=== PATIENT | male | born 1985 | race Caucasian/White ===

== ENCOUNTER 2021-09-06 12:54 | Emergency (ER) | payer MEDICAID, SELFPAY ==
[2021-09-06 12:58] VITALS: BP 162/96; PULSE 84; RESP 18; TEMP 36.6; O2SAT 99
--- NOTE | 2021-09-06 13:00 | DI.RAD_ITS ---
Exam(s) XR TIB/FIB RT EXAM: XR TIB/FIB RT CLINICAL HISTORY: ski injury, fibular head pain. TECHNIQUE: 2D digital imaging was performed. COMPARISON: No exams were available for comparison FINDINGS: Two views No evidence of fracture nor dislocation. No osseous lesions. No radiopaque foreign body. IMPRESSION: No fracture evident. DATA REPOSITORY: RADIATION DOSE DELIVERED:
--- NOTE | 2021-09-06 13:00 | DI.RAD_ITS ---
Exam(s) XR KNEE RT 3V AP,LAT,ANGEL EXAM: XR KNEE RT 3V AP,LAT,AGNEL CLINICAL HISTORY: ski injury, right lateral knee pain. TECHNIQUE: 2D digital imaging was performed. COMPARISON: No exams were available for comparison FINDINGS: 3 views No evidence of fracture. There is a small amount of increased joint fluid. This may signify an inte rnal derangement. No joint space narrowing. No osteochondral defects. No osseous lesions. IMPRESSION: No significant osseous finding. However, there is a joint effusion which may signify an internal koko angement DATA REPOSITORY: RADIATION DOSE DELIVERED:
--- OUTSIDE RECORDS SUMMARY | 2021-09-06 13:08 | XMS_ITS ---
:1985 Author Care Team Providers Name Role Phone ANYA PIZARRO MD Primary Care Provider [phone] Allergies Code Code System Name Reaction Severity Status Onset NKDA ? Medications Name Status Start Date Stop Date ? ? cephalexin 500 mg tablet Active ? Not sirena ilable Take 1 tablet 4 times a day by oral route for 5 days. cyclobenzaprine 5 mg tablet Completed 07/07/201306/25 1 Tablet: Three times daily as needed escitalopram 20 mg tablet Completed 07/09/20132013 1 Tablet: daily hydrocodone 5 mg-acetaminophen 500 mg tablet Completed 07/31/2013 1 Tablet: every 12 hours prn cluster headache Imitrex 25 mg tablet Completed 07/07/2013 07/07/2013 1 Tablet: at onset of headache mirtazapine 15 mg tablet Active ? Not sirena ilable TAKE 1 TABLET BY MOUTH AT BEDTIME paroxetine 20 mg tablet Completed 07/07/2013 07/07/19 14 1 /2 Tablet: daily penicillin V potassium 250 mg tablet Completed 06/30/2014 07/10/2014 1 (one) Tablet Tablet: Every 6 hours penicillin V potassium 500 mg tablet Completed 10/27/2013 11/06/2013 1 (one) Tablet: every 6 hours quetiapine 100 mg tablet Active ? Not sirena ilable TAKE 1 TABLET BY MOUTH AT BEDTIME sumatriptan 20 mg/actuation nasal spray Completed 02/25/20 14 02/24/2014 1 Solution: 1 spray in nostril prn cluster headache sumatriptan 5 mg/actuation nasal spray Completed 6 03/21/2016 2 (two) Lemitar: every 6 hours and every 6 hours as needed topiramate 25 mg tablet Completed 07/07/2013 08/06/19 14 1 Tablet: at bedtime Tylenol-Codeine #3 300 mg-30 mg tablet Completed 4 02/07/2016 1 (one) Tablet Tablet: Every 6 hours as needed Ultram 50 mg tablet Completed 03/17/2016 03/21/2016 1 (one) Tablet: every 6 hours as needed Vyvanse 30 mg capsule Active ? Not availa ble TK 1 C PO QAM Vyvanse 50 mg capsule Active ? Not availa ble TAKE 1 CAPSULE BY MOUTH EVERY MORNING Problems Name Status Onset Date Source ? Screening for Cardiovascular System Active 04/28/2019 ? Disease Episodic Mood Disorder Active ? ? Nicotine Dependence Active ? History Cannabis Abuse Unknown ? History Depressive Disorder Active ? ? Cluster Headache Unknown ? History Episodic Cluster Headache Active ? Histor y Migraine Active ? History Periapical Abscess without Sinus Tract Unknown ? History Mental Disorder Unknown ? History Inflammatory Disorder of Digestive Unknown ? History Tract Procedure by Method Unknown ? History Procedures None recorded. Results Lab Results Date Name Specimen Result Interpretation Description Value Range Status Address ? 09/29/2020 SARS CoV 2 SWAB ? Covid-19 negative negative Fi nal [place] RNA RT-PCR [place] (COVID-19), [facility] QL, physical geographer-PCR, Result (Int ernal): Respiratory [address] Specimen Geovanny Cruz ort ? ? SWAB ? Performing panther ? Final [facility] L ab (Internal) : [address] t 09/20/2020 CBC W/ Auto BLD High Wbc 13.4 5.0-10.0 Final [place] Diff 10*3/uL 10*3/uL [facility] L ab (Internal) : [address] t ? ? BLD ? Rbc 5.29 4.60-6.00 Final [place] 10*6/uL 10*6/uL [facility] L ab (Internal) : [address] t ? ? BLD ? Hgb 15.8 g/dL 14.0-18.0 Final Nort h g/dL [facility] L ab (Internal) : [address] t ? ? BLD ? Hct 43.9 % 41.0-51.0 Final [place] % [facility] L ab (Internal) : [address] t ? ? BLD ? Mcv 83.0 fL 80.0-96.0 Final [facility] L ab (Internal) : [address] t ? ? BLD ? Mch 29.9 pg 26.0-32.0 Final [facility] L ab (Internal) : [address] t ? ? BLD High Mchc 36.0 g/dL 31.0-35.0 Final Nort h g/dL [facility] L ab (Internal) : [address] t ? ? BLD ? Rdw 12.5 % 11.5-14.5 Final [facility] L ab (Internal) : [address] t ? ? BLD ? Plt 227 130-450 Final [place] 10*3/uL 10*3/uL [facility] L ab (Internal) : [address] t ? ? BLD ? Anc 10.03 ? Final [place] 10*3/uL [facility] L ab (Internal) : [address] t ? ? BLD High Nlr 4.16 0.00-3.20 Final [facility] L ab (Internal) : [address] t ? ? BLD ? Neutro 75.0 % 40.0-75.0 Final [facility] L ab (Internal) : [address] t ? ? BLD Low Lymph 18.0 % 20.0-50.0 Final [facility] L ab (Internal) : [address] t ? ? BLD ? [place] 5.4 % 2.0-10.0 Final [facility] L ab (Internal) : [address] t ? ? BLD Low Eos 0.7 % 1.0-6.0 % Final [facility] L ab (Internal) : [address] t ? ? BLD ? Baso 0.6 % 0.0-1.0 % Final [facility] L ab (Internal) : [address] t ? ? BLD ? Ig 0.3 % 0.0-0.9 % Final [facility] L ab (Internal) : [address] t 09/20/2020 CMP, Serum or S ? g/r 97 mg/dL 74-106 [facility] [place] Plasma mg/dL [facility] L ab (Internal) : [address] t ? ? S ? Bun 9 mg/dL 9-20 Final [facility] mg/dL [facility] ([facility] : [address] t ? ? S Low Crea 0.60 0.66-1.25 Final [facility] mg/dL mg/dL [facility] ([facility]) : [address] t ? ? S ? Ca 9.1 mg/dL 8.4-10.2 Final [facility] mg/dL [facility] ([facility]) : [address] t ? ? S ? Na 141 137-145 Final [facility] mmol/L mmol/L [facility] (Internal) : [address] t ? ? S ? K 3.9 3.5-5.1 Final [place] mmol/L mmol/L [facility] (Internal) : [address] t ? ? S ? Cl 100 98-107 Final [facility] mmol/L mmol/L [facility] (Internal) : [address] t ? ? S ? Tco2 25.0 22.0-30.0 Final [facility] mmol/L mmol/L [facility] (Internal) : [address] t ? ? S ? Tp 7.6 g/dL 6.3-8.2 Final [facility] g/dL [facility] (Internal) : [address] t ? ? S ? Alb 4.7 g/dL 3.5-5.0 Final [facility] g/dL [facility] (Internal) : [address] t ? ? S ? Tbil 0.6 mg/dL 0.2-1.3 Final [facility] mg/dL [facility] (Internal) : [address] t ? ? S ? Alp 54 U/L 50-136 Final [facility] U/L [facility] ([facility]) : [address] t ? ? S Low Alt (Sgpt) 20 U/L 21-72 U/L Final No rth [facility] (Internal) : [address] t ? ? S ? Ast (Sgot) 26 U/L 17-59 U/L Final [facility]th [facility] (Internal) : [address] t 09/20/2020 Lipase, Serum S ? Lip 46 U/L 23-300 Final [place] or Plasma U/L [facility] L ab (Internal) : [address] 09/20/2020 Troponin I, S ? Trop <0.06 0.00-0.06 Final [place] Serum or NG/mL NG/mL [facility] L ab (Internal) : [address] Past Encounters None recorded. Social History Tobacco Smoking Status Heavy Tobacco Smoker (1 pack per day) Vaccine List None recorded. Plan of Care Reminders Provider Appointments None ? ? recorded. Lab None ? ? recorded. Referral None ? ? recorded. Procedures None ? ? recorded. Surgeries None ? ? recorded. Imaging None ? ? recorded. Vitals 04/28/2019 09:40AM New Patient 40 Height Weight BMI Blood Pressure 190.5 cm 93.3 kg 25.7 kg/m2 130/82 mm[Hg] 03/21/2016 Blood Pressure 128/90 mm[Hg] 02/07/2016 Weight Blood Pressure 71.44 kg 134/80 mm[Hg] 06/30/2014 Weight Blood Pressure 71.44 kg 130/80 mm[Hg] 02/24/2014 Weight Blood Pressure 69.58 kg 120/64 mm[Hg] 07/21/2013 Weight Blood Pressure 69.99 kg 120/74 mm[Hg] 07/09/2013 Weight Blood Pressure 69.85 kg 120/78 mm[Hg] 07/07/2013 Weight Blood Pressure 69.85 kg 130/70 mm[Hg] 01/12/2013 Weight Blood Pressure 70.31 kg 122/80 mm[Hg] 12/11/2012 Height Weight Blood Pressure 191.77 cm 70.44 kg 122/84 mm[Hg]
--- NOTE | 2021-09-06 13:16 | W.ED.GENAD ---
Discharge Plan Disposition Patient Disposition: HOME Condition: Stable Discharge Details Chief Complaint: Orthopedic Clinical Impression: Contusion of knee Primary Care Provider: Funmi,Local ED Provider: Hunter Tellez Home Meds and New Rx's Prescriptions: No Action paroxetine HCl [Paxil] 30 MG tablet 30 mg PO DAILY 0RF cyclobenzaprine 10 MG tablet 10 mg PO TID PRN PRNQty: 10 0RF Discharge Instructions Instructions: Contusion in Adults (ED) Additional Instructions: Rest ice and elevate your right leg. Use crutches as needed. If no improvement is seen in the coming days or if you have worsening symptoms please return to the emergency department for further evaluation and/or be seen by orthopedic team within the next week. Referrals: Kamran Ya MD [ [facility] STAFF PHYSICIAN] - 1 week (Please be seen by orthopedic radiologic technologist if symptoms worsen or do not improve) Medical Decision Making 36-year-old male presents with right knee pain and left facial pain in setting of hitting a tree yesterday skiing no loss of conscious was helmeted wearing goggles, range of motion intact in lower extremity, superficial abrasion and point tenderness over fibular head, no joint laxity, a small amount of weight. Extraocular motion intact pupils equal TMs unremarkable, no evidence of ocular entrapment, no evidence of malocclusion. Likely simple contusion of face and knee must also consider avulsion fracture versus fracture of fibula versus less likely tibial fracture or knee dislocation or femoral involvement. Neurologically intact neurovascular exam of limb intact. Patient's pain is controlled at this time. X-ray of affected limb. Low suspicion for intracranial hemorrhage or facial fracture given history and physical. Home care instructions and return precautions to be given Resting comfortably no acute distress. X-ray negative for acute fracture dislocation. Able to bear small amount of weight. Likely bone contusion versus soft tissue injury. Dueto location of pain over fibular head/lateral tibia and inability to bear full weight patient was offered CT to evaluate for tibial plateau fracture or given the option to return for follow-up here as needed and/or be seen with orthopedic team as needed. Patient would rather assess progress at home and return if needed and to follow-up with orthopedic team as needed. Will be given crutches for comfort. Home care instructions and return precautions given [facility] General Date/Time Provider Initiated Documentation: 09/06/21 13:02. HPI Narrative: 36-year-old male presents 1 day post skiing injury, hit a tree with his right knee and his face, no loss of consciousness, was helmeted and wearing goggles, does have some swelling to left side of face, pain with range of motion and full weight bearing on the right lower extremity, abrasion to right lateral knee; denies headache nausea vomiting or other trauma. Is able to bear weight however is favoring his right leg. Related Data Home Medications Medication Instructions Recorded Confirmed cyclobenzaprine 10 mg tablet 10 mg PO TID PRN PRN #10 tab 07/04/13 paroxetine HCl 30 mg tablet (Paxil) 30 mg PO DAILY 07/04/13 07/04/13 Previous Rx's Medication Instructions Recorded cyclobenzaprine 10 mg tablet 10 mg PO TID PRN PRN #10 tab 07/04/13 Allergies Allergy/AdvReac Type Severity Reaction Status Date / Time No Known Allergies Allergy Unverified 07/04/13 15:24 General Stated Complaint: Orthopedic SHAZIA: 4 Review of Systems Narrative: Review of Systems Constitutional: negative Eyes: negative ENT: Facial injury Cardiovascular: negative Respiratory: negative Gastrointestinal: negative : negative Musculoskeletal: Right lower extremity pain Skin: negative Neurologic: negative Psych: negative PFSH All Active Problems (Updated 09/06/21 @ 15:33 by Hunter Tellez MD) Contusion of knee (Acute) Social History Smoking/Tobacco Use Status: Current every day Smoking risk assessment performed?: Yes Alcohol Intake: current Drug use: Daily Substance use type: marijuana Do you feel safe at home: Yes Do you feel safe in your relationship?: Yes Exam Narrative Exam Narrative: Physical Examination General: alert, awake, cooperative, resting comfortably, no acute distress HEENT: normocephalic, mild developing ecchymosis inferior to left orbit; PERRL, EOM intact, conjunctiva normal; no nasal discharge; moist mucous membranes, oral and pharyngeal mucosa normal, tolerating secretions; TMs unremarkable Neck: supple, trachea midline; full ROM Chest: normal to inspection Respiratory: normal respiratory effort, speaking in full sentences, clear to auscultation, no wheezing, rales or rhonchi Cardiac: regular rate, regular rhythm, S1S2 intact, no murmurs rubs or gallops GI: abdomen soft, non-tender, non-distended; no palpable mass or hepatosplenomegaly Skin: no lesions, rashes or trauma appreciated Neuro: AAOx3, normal speech, moving all extremities Extremities: Right lower extremity: Superficial abrasion over fibular head, point tenderness over fibular head, mild joint effusion, no laxity no crepitus, range of motion flexion extension intact, soft compartments, strong tibialis posterior pulse, warm well perfused sensate extremity. Psych: Appropriate mood and affect Course Vital Signs Vital signs: Vital Signs Temperature 36.6 C 09/06/21 12:58 Pulse 84 09/06/21 12:58 Respiratory Rate 18 09/06/21 12:58 Blood Pressure 162/96 H 09/06/21 12:58 Pulse Oximetry 99 09/06/21 12:58 Temperature 36.6 C 09/06/21 12:58 Temperature Source Tympanic 09/06/21 12:58 Pulse 84 09/06/21 12:58 Respiratory Rate 18 09/06/21 12:58 Respiratory Effort 09/06/21 13:01 Blood Pressure 162/96 H 09/06/21 12:58 Blood Pressure Position Supine 09/06/21 12:58 Pulse Oximetry 99 09/06/21 12:58 Oxygen Delivery Method Room Air 09/06/21 12:58 Oxygen Flow Rate 0 09/06/21 12:58 Pain Level 5 09/06/21 12:58 PAWSS Have you Been Recently Intoxicated or Drunk Within the Last 30 days?: No Have you Ever Experienced Previous Episodes of Alcohol Withdrawal?: No Have you ever Experienced Withdrawal Seizures?: No Have you ever Experienced Delirium Tremens(DT)s?: No Have you ever undergone Alcohol Rehabilitation Treatment (i.e, inpt ot outpatient treatment programs)?: No Have you ever Experienced Blackouts?: No Have you ever Combined Alcohol with other Downers within the last 90 days?: No Have you ever Combined Alcohol with any other Substance of Abuse during the last 90 days?: No Positive Blood Alcohol level on Presentation? [PCS.BAL]: No Evidence of Increased Autonomic Activity (i.e. HR>120, tremor, sweating, agitation, nausea)?: No Result: 0
--- NOTE | 2021-09-06 13:47 | NUR.NOTE ---
Nursing Note:Pt to DI for exams via w/c and returned, no new complaints, maintained ice to knee
[2021-09-06 14:50] VITALS: BP 127/71; PULSE 74; RESP 18; TEMP 36.7; O2SAT 100
== END 2021-09-06 15:46 | disposition home or self-care (01) ==
PROVIDERS: Emergency Provider Emergency Medicine
DX: S80.01XA Contusion of right knee, initial encounter (principal); M79.651 Pain in right thigh; V00.321A Fall from snow-skis, initial encounter
CPT/HCPCS: 73562; 99284; 73590; 99283

== ENCOUNTER 2023-05-16 20:25 | Emergency (ER) | payer MEDICAID, SELFPAY ==
[2023-05-16 20:44] VITALS: BP 152/89; PULSE 78; RESP 16; TEMP 37.1; O2SAT 99
--- NOTE | 2023-05-16 21:08 | W.ED.GENAD ---
Discharge Plan Discharge Details Chief Complaint: PsychEval Primary Care Provider: None,None ED Provider: Aly Hung Home Meds and New Rx's Prescriptions: No Action olanzapine 5 mg tablet 5 mg PO QHS venlafaxine [Effexor XR] 37.5 mg capsule,extended release 24hr 37.5 mg PO DAILY Medical Decision Making 37-year-old male presents to the ER with a chief of suicidal ideation, depression he states been on a roller coaster, I need help. He does endorse alcohol use today and thoughts of driving his car into a telephone pole. He was recently given Effexor which she has not started he does take olanzapine nightly took it last night. He does have a history of bipolar ADHD and OCD. Smart medical clearance form filled out, UDS ordered, patient requested to get into paper scrubs. Originally he is declining this. I did tell him that this is our protocol. At this time patient is calm and cooperative. Discussed plan of care. Spoke with Tenisha with [facility], she will call back to do a crisis eval. Care is to be handed off to ER attending Dr. Aly Hung pending MH eval. Discussed patient case and details with him. This text was generated using [employer] dictation system, please disregard any oddities of phrase or misspellings. HPI General Mode of arrival: ambulatory. Date/Time Provider Initiated Documentation: 05/16/23 20:53. Limitations to Documentation: no limitations. Information obtained by: patient, RN notes reviewed and old records reviewed. HPI Narrative: 37-year-old male presents to the ER with a chief of suicidal ideation, depression he states been on a roller coaster, I need help. He does endorse alcohol use today and thoughts of driving his car into a telephone pole. He was recently given Effexor which she has not started he does take olanzapine nightly took it last night. He does have a history of bipolar ADHD and OCD. Related Data Home Medications Medication Instructions Recorded Confirmed olanzapine 5 mg tablet 5 mg PO QHS 05/16/23 05/16/23 venlafaxine 37.5 mg 37.5 mg PO DAILY 05/16/23 05/16/23 capsule,extended release 24 hr (Effexor XR) Allergies Allergy/AdvReac Type Severity Reaction Status Date / Time No Known Allergies Allergy Unverified 05/16/23 20:56 General Stated Complaint: PsychEval SHAZIA: 2 Review of Systems All systems reviewed & are unremarkable except as noted in HPI and below Neurologic Neurologic: Reports behavioral changes Psychiatric Psychiatric: Reports as per HPI, Reports abnormal sleep pattern, Reports behavioral changes, Reports change in appetite, Reports depression, Reports hopelessness, Reports irritability, Reports anhedonia, Reports mood swings and Reports suicidal ideation [facility] Social History Smoking/Tobacco Use Status: Current every day Tobacco Type: cigarettes Smoking risk assessment performed?: Yes Alcohol Intake: current Alcohol Intake frequency: a few times a month Alcohol type: beer Drug use: Daily Substance use type: marijuana Housing: other Do you feel safe at home: No Do you feel safe in your relationship?: Yes Exam Narrative Exam Narrative: Constitutional: Alert and oriented x3. Appears stated age. Normal body habitus. Head: Normocephalic, no trauma. Eyes: Pupils PERRL, Red reflex noted, EOM's intact. Eyelids symmetrical without lesions, discharge, or swelling. ENT: Bilateral TM's WNL, External ear normal to inspection, no mastoid TTP, swelling, or erythema, Nasal turbinates WNL, no nasal discharge. Normal dentition, Posterior pharynx WNL, no exudate. Chest: RRR, Normal S1, S2, distal pulses intact. Resp: Lungs clear to auscultation bilaterally, no wheezes, rales, or rhonchi. Abdomen: Soft, non-distended, Normoactive bowel sounds all 4 quads. Musculoskeletal: Normal gait, 5/5 strength to all four extremities. Skin: No suspicious rashes or lesions. Capillary refill less than 2 sec. Neurologic: Cranial nerves II-XII intact. Alert and oriented x 3. Motor: No deficits noted. Sensory: Intact bilaterally all 4 extremities. Reflexes: DTR's intact bilaterally.. Hematologic/Lymphatic: No ecchymosis, no lymphadenopathy. Psych Appearance: well kempt Mental Status: mental status grossly normal Speech and Movement: speech and movement normal Mood: irritable mood Affect: normal affect Attitude: cooperative Thought Process: normal Thought Content: compulsions and suicidality Insight: insight good Judgment: judgment good Course Vital Signs Vital signs: Vital Signs Temperature 37.1 C 05/16/23 20:44 Pulse 78 05/16/23 20:44 Respiratory Rate 16 05/16/23 20:44 Blood Pressure 152/89 H 05/16/23 20:44 Pulse Oximetry 99 05/16/23 20:44 Temperature 37.1 C 05/16/23 20:44 Temperature Source Temporal Artery Scan 05/16/23 20:44 Pulse 78 05/16/23 20:44 Respiratory Rate 16 05/16/23 20:44 Respiratory Effort Normal 05/16/23 20:48 Blood Pressure 152/89 H 05/16/23 20:44 Blood Pressure Position Sitting 05/16/23 20:44 Pulse Oximetry 99 05/16/23 20:44 Oxygen Delivery Method Room Air 05/16/23 20:44 Oxygen Flow Rate 0 05/16/23 20:44 Pain Level 0 05/16/23 20:44 Sign Out Sign Out Data: Sign Out Comment: Suicidal ideation. Pending eval. [facility] medical clearance form filled out. Calm and cooperative at this time. Last updated by Jennie Nicolas NP at 05/16/23 22:04
--- NOTE | 2023-05-16 22:14 | ED.PROG_ITS ---
Date of service: 05/16/23 Time of Service: 22:14 Medical Decision Making I received signout on this 37-year-old male with a history of OCD ADHD and bipolar disorder on outpatient daily olanzapine now in the emergency department in the setting of thoughts of self-harm. Patient has been in touch with [facility] [employer]. He is smart medically cleared. His original provider will order him his home nightly dose of olanzapine. He has not yet started taking his venlafaxine so we will defer this at this point in time. He will also receive a safety tray. He is on a continuous clinical patient safety watch at this point. We will update documentation after touching base with [facility] from [facility] No reported history of tobacco, ethanol, nor illicits. 10:48 PM Urine drug screen positive for THC. Patient on the phone with an [facility]. 11:20 AM I spoke with [facility] from [facility] who had completed a Zoom meeting with the patient. Unfortunately [facility] had not placed the patient on the wait list for the care bed. At this point this will not happen until Saturday. Tenisha then attempted to complete a safety plan with the patient however he became less willing to engage. He did agree that he would receive a call from [facility] [employer] at 9 AM tomorrow morning. Tenisha noted that he was future oriented as a single father with full custody of his 10-year-old daughter. She felt that he had enough protective factors and given that he did out reach to [facility] and arrived voluntarily that he was appropriate for discharge. I met with the patient. He was calm collected cooperative. No pressured speech no flight of ideas. He reported that he wanted to go as his daughter was with his parents who did not know where he was at the moment. I offered him to stay in the emergency department voluntarily in order to seek inpatient placement. He declined. I advised that he return to the emergency department if he developed any thoughts of self-harm or if he did not feel safe at home. He understood his return indications and was discharged with an empiric trial of expectant outpatient management. Tenisha will provide a safety plan. Sign Out Sign Out Data: Sign Out Comment: Suicidal ideation. Pending thao. Smart medical clearance form filled out. Calm and cooperative at this time. Last updated by Jennie Nicolas NP at 05/16/23 22:04 Discharge Plan Disposition Patient Disposition: Home Discharge Details Clinical Impression: Depression with suicidal ideation Primary Care Provider: None,None ED Provider: Aly Hung Home Meds and New Rx's Prescriptions: Continued olanzapine 5 mg tablet 5 mg PO QHS venlafaxine [Effexor XR] 37.5 mg capsule,extended release 24hr 37.5 mg PO DAILY Discharge Instructions Instructions: Depression (ED), Help Prevent Suicide (ED) Additional Instructions: You were seen in the emergency department for your thoughts of self-harm. You arrived voluntarily. If you have any concerns about your safety or would like to speak with a mental health clinician please return to the emergency department. Otherwise [facility] [employer] services will call you at 9 AM tomorrow morning. Please continue taking your regularly scheduled medications as previously described.
[2023-05-16 22:42] LABS: *AMPHETAMINES SCREEN URINE Negative (Negative); *BARBITURATES SCREEN URINE Negative (Negative); *BENZODIAZEPINES SCREEN URINE Negative (Negative); Cannabinoids THC Positive (Negative); Cocaine Screen,Urine Negative (Negative); METHADONE URINE SCREEN Negative (Negative); OPIATES URINE SCREEN Negative (Negative)
[2023-05-16 22:43] LABS: Tricyclic Antidepressants Negative (Negative)
== END 2023-05-16 23:35 | disposition home or self-care (01) ==
PROVIDERS: Registered Nurse Emergency; Emergency Provider Emergency Medicine
DX: R45.851 Suicidal ideations (principal); F32.A Depression, unspecified
CPT/HCPCS: 00123; 80307; 99283; 99285

== ENCOUNTER 2023-05-16 23:53 | Emergency (ER) | payer MEDICAID, SELFPAY ==
--- NOTE | 2023-05-16 23:57 | W.ED.GENAD ---
Discharge Plan Discharge Details Chief Complaint: PsychEval Clinical Impression: Depression with suicidal ideation Primary Care Provider: None,None ED Provider: Aly Hung Home Meds and New Rx's Prescriptions: No Action olanzapine 5 mg tablet 5 mg PO QHS venlafaxine [Effexor XR] 37.5 mg capsule,extended release 24hr 37.5 mg PO DAILY HPI General Date/Time Provider Initiated Documentation: 05/16/23 23:54. HPI Narrative: MDM This is an overall very well-appearing afebrile nontoxic and not tachycardic 37-year-old male returning to the emergency department in the setting of suicidal ideation with depression for which patient will undergo voluntary placement. Patient had recently been screened on the smart medical clearance form and been determined to be medically cleared. He received his nightly olanzapine dose. He was initially discharged however he returned voluntarily. I spoke with Tenisha from [facility] [employer] and she will seek voluntary placement and fax referrals overnight. Patient will change and paper scrubs. I have ordered him for a regular diet on the safety tray. I have also ordered a clinical patient safety observer or one-to-one. He denies routine tobacco, ethanol, and illicits. Please see my note from earlier today and Jennie Nicolas's initial note. I ordered a COVID swab at this patient. 5:50 PM COVID-negative. No active behavioral issues last shift. Patient does not yet have a blood pressure documented on this encounter. He had a blood pressure yesterday evening during his last encounter which was 152/89. We will ask the day team to obtain blood pressure and sign patient out to oncoming daytime provider. SMART medical clearance (if all five of the following are answered ``no?? then the patient is considered medically cleared and no testing is indicated): Suspect new onset psychiatric condition or features? [No] Medical conditions that require screening? [No] Diabetes (FSBS less than 60 or greater the 250) Possibility of (age 12 - 50) Other complaints that require screening Abnormal: [No] Vital signs? Temp: greater than 38.0 degrees C (100.4 degrees F) HR: less than 50 or greater than 110 BP: less than 100 systolic or greater than 180/110 (2 consecutive readings 10 min apart) RR: less than 8 or greater than 22 O2 sat: less than 95 % on room air Mental status? Cannot answer name, month/year and location (minimum A/Ox 3) If clinically intoxicated, HII score 4 or more? Physical Exam (unclothed)? Risky presentation? [No] Age less than 12 or greater than 55 Possibility of ingestion (screen all suicidal patients) Eating disorders Potential for alcohol withdrawal (daily use > or equal to 2 weeks) Ill appearing, significant injury, prolonged struggle or ``found down?? Therapeutic levels needed? [No] Phenytoin, Valproic Acid, [place], Digoxin, Warfarin, Carbamazepine At this time patient is calm and cooperative. Discussed plan of care. Chronic conditions affecting the care of the patient: Depression History obtained from an outside historian: [facility] External record review: N/A Medications: Nightly olanzapine Social determinants of health affecting disposition: N/A Management discussed with: [facility] Treatment/interventions considered: N/A Response to therapies provided: N/A HPI This is a 37-year-old male with a history of ADHD and OCD and bipolar disorder return to the emergency department following recent discharge in the setting of suicidal ideation. He had thoughts earlier today of driving his car into a telephone pole after drinking some alcohol. He recently was prescribed venlafaxine but has not yet started this. He has no auditory or visual hallucinations. He denies chest pain nausea vomiting shortness of breath. Exam General: Well-appearing in no acute distress speaking in complete sentences. Head: Normocephalic, atraumatic. Eye: Extraocular eye movements intact. No conjunctival injection. No scleral icterus. Ear, nose, mouth, throat: Grossly normal inspection. Normal voice, handling secretions normally. Neck: Trachea midline. Cardiovascular: Well-perfused distal extremities. Respiratory: Nonlabored respiration. Gastrointestinal: Nondistended abdomen. Musculoskeletal: No edema. Moving all 4 extremities spontaneously. Skin: Normal for age and race, grossly normal temperature and turgor. No acute rash. Neurologic: Alert and appropriate, no apparent acute deficits. Psychiatric: Mood and manner are appropriate. Grooming and personal hygiene are appropriate. Calm cooperative no pressured speech. No visual nor auditory hallucinations. No flight of ideas. Related Data Home Medications Medication Instructions Recorded Confirmed olanzapine 5 mg tablet 5 mg PO QHS 05/16/23 05/16/23 venlafaxine 37.5 mg 37.5 mg PO DAILY 05/16/23 05/16/23 capsule,extended release 24 hr (Effexor XR) Allergies Allergy/AdvReac Type Severity Reaction Status Date / Time No Known Allergies Allergy Unverified 05/16/23 20:56 General SHAZIA: 2 PFSH All Active Problems (Updated 05/17/23 @ 05:51 by Aly Hung MD) Depression with suicidal ideation (Acute) Social History Smoking/Tobacco Use Status: Current every day Tobacco Type: cigarettes Smoking risk assessment performed?: Yes Alcohol Intake: current Alcohol Intake frequency: a few times a month Alcohol type: beer Drug use: Daily Substance use type: marijuana Housing: other Do you feel safe at home: No Do you feel safe in your relationship?: Yes
[2023-05-17 00:08] LABS: Source Nasal/Nares
[2023-05-17 00:20] VITALS: PULSE 71; RESP 18; TEMP 37.1; O2SAT 98
[2023-05-17 00:37] LABS: COVID-19 PCR Negative (Negative)
--- NOTE | 2023-05-17 04:34 | PDOC.MHCN ---
Date of service: 05/17/23 Time of Service: 04:34 Mental Health Emergency Note Release NK release signed:: Yes Reason for Visit The client arrived to the ED at [facility] as he was not feeling safe and felt that his attempts to seek help was not being met through [facility]. This assessment is completed through [employer]. In the last 2 weeks has the pt presented for ES prior to today?: Unknown Client Information Client is: Adult Outpatient Well Housed: Yes Non Suicidal Self Injury Current: No History: No Safety Risk/Harm to Self or Others Current Ideation to Harm Self or Others: Yes to self. Intent: yes, has intent. Plan: yes,has a plan. History of suicide attempt: No history of suicide attempt reported Risk: Does risk to harm exist?: yes. Access to means: Yes. Types of Means: Other (Car). Details: Client has thoughts to drive his car into a telephone pole. . Counseling provided: Yes Risk: Moderate Risk Duty to warn indicated: No Asssessment/Mental Status Appearance: Well groomed Attitude: Cooperative Behavior: Unremarkable Speech: Normal Affect: Cogruent with mood Mood: Depressed, Anxious and Irritable Thought process: Goal directed Hallucinations: No Delusions: No Attention: Unremarkable Perception: Not impaired Orientation: Fully orientated Memory: Intact Insight: Good Judgement: Good Neurovegetative Symptoms Sleep: Decrease Appetitie: Decrease Interests: Decrease Energy: Decrease Libido: Not applicable Substance Use: Do you use nicotine?: No Have you used substances in the last 7 days?: No Additional Issues: Assaultive/Threatening Behavior: No Medical Concerns: No Client engaged in active self harm w/weapon: No Threatening to run away: No Child reported abuse/neglect: No Voluntarily presenting for services: Yes Domestic violence is a concern: No Extreme Psychosis or extreme behavior is present: No Impression The client is a 37 year old, 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 He is diagnosed with bipolar disorder. He presents seeking help as he has not been able to get the help he has been asking for and does not feel he can wait any longer. He said he was feeling really bad again so came to [facility] for help via a friend. I don't know who I am. He was started on a new medication 2 days ago but due to the holiday he was unable to pick that up. I'm sick of feeling this way. I need serious help and can't take this anymore. Initially, the client wanted to return home however, after he walked out into the waiting room he decided he could not go home and needed to stay for help. His biggest concern is the care for his daughter while he gets the help. She is currently with his parents. The client presents as calm and respectful until his level of SI was addressed and the concerns for that when he did not want to engage with a safety plan. He was able to take a step back however, and realize the state he was in and was then willing to stay for treatment. He makes good eye contact and is mostly cooperative until his anxiety kicked in and he worried about the care for his daughter. Once he figured that out however, he seemed to be in a better place to take care of his needs so that he can continue to take care of hers. Plan/Disposition Recommended Disposition: Hospitalization (New referrals sent ) No. Plan: The client will remain at [facility] and screened daily by [facility] until placement is found. Person reported agreement to plan: Yes Reports/communication Outcome discussed with: ED/Personnel
--- NOTE | 2023-05-17 08:23 | PDOC.CMSAFE ---
Date of service: 05/17/23 Time of Service: 08:23 Care Management Safety Plan Status Status: Voluntary Reason for Wait Reason for Wait: Inpatient Admission and Other (Referral coordination) Safety Plan Safety Plan: VOLUNTARY FOR INPATIENT PSYCHIATRIC STABILIZATION.? Patient is appropriate in all interactions since arriving at [facility]; Pt has demonstrated appropriate coping and communication skills, has articulated his or her needs and concerns and is fully engaged during staff interactions. Safety plan has been established with patient, and care team, to adhere to patient goals, identify restrictions based on behavioral status, address nutrition, and determine allowed personal belongings, tools for hygiene and personal care. Determine level of activity including ambulation, level of supervision, visitors, and determine privileges based on behaviors and level of engagement by pt. SAFETY PLAN: 1. Will remain on suicide precautions, in paper clothes 2. Will remain in room under direct supervision of one-on-one staff at all times provided by [employer]; CALLY, TOXICS PROGRAM OFFICER technical sales director. 3. May have paper cups, plates, finger foods as well as a cardboard spoon with which to eat meals. 4. Follow [facility] Management of the Admitted Behavioral Health Patient policy. 5. Comfort bath system, shower permitted with escort at RN discretion. 6. Personal belongings-soft items permitted at RN discretion. 7. Visitors-none at this time. 8. Activities: soft cart items approved per RN discretion. 9.? Bathroom privileges with escort in the ED. 10. Phone: limited to cordless phone at RN discretion. Due to VOLUNTARY status, if patient wishes to leave [facility], staff will contact [facility] Crisis Screener ([phone]) and On-Call Patient Accounts Manager ([phone]) as soon as possible. In the event of elopement, notify [facility] Police ([phone]). Patient is currently voluntarily at [facility] and seeking inpatient admission when a bed becomes available. [facility] Frontline Credit Advisor will continue seeking placement. Please contact the [employer] Patient Accounts Manager ([phone]) and [facility] Credit Advisor ([phone]) for any needed changes in the Safety Plan. Safety plan has been provided to interdepartmental care team.
[2023-05-17 08:28] VITALS: BP 146/78; PULSE 62; TEMP 37; O2SAT 98
--- NOTE | 2023-05-17 09:28 | ED.PROG_ITS ---
Date of service: 05/17/23 Time of Service: 09:28 Medical Decision Making Care signed out by Dr. Hung with plan to follow-up on psychiatric treatment facility placement. Patient here voluntarily for suicidality. Patient medically screened and cleared by prior ED provider. I received call from [place] provider Alix Vivas, discussed ED presentation and course, she will accept the patient in transfer. Lab Data Lab results reviewed: Yes I reviewed the patient's lab results. Labs: Laboratory Tests Range/Units 05/17/23 00:02 COVID-19 Source Nasal/Nares SARS-CoV-2 (PCR) (Negative) Negative Sign Out Sign Out Data: Sign Out Comment: 37-year-old male with bipolar disorder on olanzapine, OCD, ADHD voluntarily in zone B in the setting of depression with suicidal ideation. [facility] services seeking voluntary placement. Patient has been calm cooperative medically cleared based on smart medical clearance form. No active behavioral issues last shift. Home olanzapine ordered and clinical patient food safety specialist along with regular diet on the safety tray. Follow-up items: ? Awaiting placement with [facility]. Last updated by Aly Hung MD at 05/17/23 05:53 Discharge Plan Disposition Patient Disposition: Psychiatric Hospital/Unit Specific Psychiatric Facility: [facility] Condition: Serious Discharge Details Chief Complaint: PsychEval Clinical Impression: Depression with suicidal ideation Primary Care Provider: None,None ED Provider: Aly Hung Home Meds and New Rx's Prescriptions: No Action olanzapine 5 mg tablet 5 mg PO QHS venlafaxine [Effexor XR] 37.5 mg capsule,extended release 24hr 37.5 mg PO DAILY
[2023-05-17] MEDS: Nicotine 21 MG/24 HR PATCH TD (10:59)
[2023-05-17] MEDS: Nicotine 21 MG/24 HR PATCH (13:48)
[2023-05-17] MEDS: Nicotine 4 MG GUM (14:55)
== END 2023-05-17 15:01 ==
PROVIDERS: Emergency Medicine; Emergency Provider Student in an Organized Health Care Education/Training Program
DX: R45.851 Suicidal ideations (principal); F32.A Depression, unspecified; F17.200 Nicotine dependence, unspecified, uncomplicated
CPT/HCPCS: 00123; 87635